=== PATIENT | male | born 1980 | race Caucasian/White ===

== ENCOUNTER 2018-02-21 17:21 | Inpatient (IN) | payer MEDICARE, MEDICAID ==
[~2018-02-21] VITALS: Ht 175.3 cm; Wt 112.0 kg
[~2018-02-21 17:21] MED LIST: NOCURR
[2018-02-21 22:05] VITALS: BP 123/68
[2018-02-21 22:25] VITALS: BP 123/68
[2018-02-21] MEDS ORDERED: ALBUTEROL SULFATE HFA 90 MCG/PUFF 8 GM INHALER IH PRN (22:45)
[2018-02-21] MEDS ORDERED: PNEUMOCOCCAL VACCINE POLYVALENT 0.5 ML VIAL [PPSV23] IM ONE (22:45)
[2018-02-22 05:30] VITALS: BP 120/86
[2018-02-22 07:26] LABS: BASOPHILS % (AUTO) 0.7 % (0.0-2.0); EOSINOPHILS % (AUTO) 4.2 % (1.0-6.0); HEMATOCRIT 37.8 % (41-53); HEMOGLOBIN 13.1 g/dL (13.5-17.5); LYMPHOCYTES # (AUTO) 3.2 K/uL (1.0-4.8); LYMPHOCYTES % (AUTO) 32.6 % (22.0-44.0); MEAN CORPUSCULAR HEMOGLOBIN 32.2 pg (26.0-34.0); MEAN CORPUSCULAR HGB CONC 34.5 G/dL (31.0-37.0); MEAN CORPUSCULAR VOLUME 93 fL (80-100); MONOCYTES # (AUTO) 1.1 K/uL (0.1-1.0); MONOCYTES % (AUTO) 11.7 % (2.0-9.0); NEUTROPHILS % (AUTO) 50.8 % (40.0-70.0); PLATELET COUNT (AUTO) 233 K/uL (150-450); RED BLOOD CELL COUNT(AUTO) 4.06 MIL/uL (4.50-5.90); RED CELL DISTRIBUTION WIDTH 13.8 % (11.5-14.5)
[2018-02-22 08:09] LABS: HEMOGLOBIN A1C 5.9 % (4.5-6.2)
[2018-02-22 08:12] LABS: ALANINE AMINOTRANSFERASE 41 U/L (12-78); ALBUMIN 3.5 g/dL (3.4-5.0); ALKALINE PHOSPHATASE 48 U/L (46-116); ANION GAP 3 mmol/L (8-16); ASPARTATE AMINOTRANSFERASE 44 U/L (15-37); BILIRUBIN,TOTAL 1.1 mg/dL (0.1-1.0); CALCIUM, TOTAL 8.3 mg/dL (8.8-10.5); CARBON DIOXIDE 33 mmol/L (22-29); CHLORIDE 104 mmol/L (98-107); CHOL/HDL RATIO 3.1 (4.2-7.3); CHOLESTEROL 132 mg/dL (131-200); CREATININE 0.96 mg/dL (0.60-1.30); FREE T4 (FREE THYROXINE) 1.05 ng/dL (0.76-1.46); GLOMERULAR FILTR. RATE CALC > 60 mL/min (>60); GLUCOSE,RANDOM 90 mg/dL (70-110); HDL CHOLESTEROL 43 mg/dL (40-60); LDL CHOL (CALC.) 78 mg/dL (0-130); SODIUM SERUM 140 mmol/L (136-145); THYROID STIMULATING HORMONE 1.66 uIU/mL (0.36-3.74); TOTAL PROTEIN, SERUM 6.2 g/dL (6.4-8.2); TRIGLYCERIDES 54 mg/dL (15-150); UREA NITROGEN, BLOOD 19 mg/dL (7-18)
[2018-02-22 08:44] VITALS: BP 110/76
[2018-02-22] MEDS ORDERED: PETROLATUM,WHITE 71 GM JELLY TP PRN (08:45)
[2018-02-22] MEDS ORDERED: ALBUTEROL SULFATE HFA 90 MCG/PUFF 8 GM INHALER IH PRN (08:45)
[2018-02-22] MEDS ORDERED: CloNIDine HCL 0.1 MG TABLET PO PRN (08:45)
[2018-02-22] MEDS ORDERED: MAGNESIUM HYDROXIDE SUSPENSION 30 ML UDCUP PO PRN (08:45)
[2018-02-22] MEDS ORDERED: ACETAMINOPHEN 325 MG TABLET PO PRN (08:45)
[2018-02-22] MEDS ORDERED: BACITRACIN 28.4 GM OINTMENT TP PRN (08:45)
[2018-02-22] MEDS ORDERED: BENZOCAINE/MENTHOL LOZENGE MM PRN (08:45)
[2018-02-22] MEDS ORDERED: ONDANSETRON HCL 4 MG TABLET PO PRN (08:45)
[2018-02-22] MEDS ORDERED: LOPERAMIDE HCL 2 MG CAPSULE PO PRN (08:45)
[2018-02-22] MEDS ORDERED: MAG HYDROX/AL HYDROX/SIMETH ES 30 ML SUSPENSION UDCUP PO PRN (08:45)
[2018-02-22] MEDS: NICOTINE 21 MG/24 HOUR PATCH TD SCH (09:04)
[2018-02-22] MEDS: LORazepam 2 MG TABLET PO PRN ×2 (12:48→20:03)
[2018-02-22 16:12] VITALS: BP 117/66
[2018-02-23 01:13] VITALS: BP 120/60
[2018-02-23 06:47] VITALS: BP 119/66
[2018-02-23] MEDS: IBUPROFEN 600 MG TABLET PO PRN (06:48)
[2018-02-23 08:00] VITALS: BP 118/66
[2018-02-23] MEDS: OLANZapine 5 MG TABLET PO SCH (08:49)
[2018-02-23] MEDS: FLUoxetine HCL 20 MG CAPSULE PO SCH (08:49)
[2018-02-23] MEDS: NICOTINE 21 MG/24 HOUR PATCH TD SCH (08:50)
[2018-02-23 16:12] VITALS: BP 118/67
[2018-02-23] MEDS: LORazepam 2 MG TABLET PO PRN (17:41)
[2018-02-24 04:42] VITALS: BP 125/80
[2018-02-24 08:51] VITALS: BP 112/66
[2018-02-24] MEDS: FLUoxetine HCL 20 MG CAPSULE PO SCH (09:41)
[2018-02-24] MEDS: OLANZapine 5 MG TABLET PO SCH (09:41)
[2018-02-24] MEDS: NICOTINE 21 MG/24 HOUR PATCH TD SCH (09:42)
[2018-02-24 16:40] VITALS: BP 120/84
[2018-02-24] MEDS: LORazepam 2 MG TABLET PO PRN (18:41)
[2018-02-24] MEDS: HALOPERIDOL 5 MG TABLET PO PRN (18:41)
[2018-02-25 03:51] VITALS: BP 113/78
[2018-02-25] MEDS: FLUoxetine HCL 20 MG CAPSULE PO SCH (09:09)
[2018-02-25] MEDS: OLANZapine 5 MG TABLET PO SCH (09:09)
[2018-02-25] MEDS: NICOTINE 21 MG/24 HOUR PATCH TD SCH (09:09)
[2018-02-25] MEDS: LORazepam 2 MG TABLET PO PRN (09:09)
[2018-02-25 09:11] VITALS: BP 118/78
[2018-02-25 16:17] VITALS: BP 117/67
[2018-02-25] MEDS: ZOLPIDEM TARTRATE 10 MG TABLET PO PRN (21:24)
[2018-02-26 03:22] VITALS: BP 110/68
[2018-02-26 08:37] VITALS: BP 121/74
[2018-02-26] MEDS ORDERED: OLANZapine 10 MG TABLET PO SCH (09:00)
[2018-02-26] MEDS: NICOTINE 21 MG/24 HOUR PATCH TD SCH (09:07)
[2018-02-26] MEDS: FLUoxetine HCL 20 MG CAPSULE PO SCH (09:07)
[2018-02-26] MEDS: IBUPROFEN 600 MG TABLET PO PRN (12:41)
[2018-02-26 16:08] VITALS: BP 112/66
[2018-02-26] MEDS: HALOPERIDOL 5 MG TABLET PO PRN (17:46)
[2018-02-27 01:22] VITALS: BP 116/71
[2018-02-27] MEDS: FLUoxetine HCL 20 MG CAPSULE PO SCH (08:45)
[2018-02-27] MEDS: OLANZapine 7.5 MG TABLET PO SCH (08:46)
[2018-02-27 08:47] VITALS: BP 122/68
[2018-02-27] MEDS: NICOTINE 21 MG/24 HOUR PATCH TD SCH (08:47)
[2018-02-27] MEDS: LORazepam 2 MG TABLET PO PRN ×2 (09:23→17:00)
[2018-02-27 16:09] VITALS: BP 122/74
[2018-02-28 00:59] VITALS: BP 108/68
[2018-02-28 08:00] VITALS: BP 125/66
[2018-02-28] MEDS: OLANZapine 7.5 MG TABLET PO SCH (08:48)
[2018-02-28] MEDS: NICOTINE 21 MG/24 HOUR PATCH TD SCH (08:48)
[2018-02-28] MEDS: FLUoxetine HCL 20 MG CAPSULE PO SCH (08:48)
[2018-02-28] MEDS: LORazepam 2 MG TABLET PO PRN ×2 (08:49→16:32)
[2018-02-28 09:21] VITALS: BP 121/78
[2018-02-28] MEDS: IBUPROFEN 600 MG TABLET PO PRN ×2 (09:43→20:31)
[2018-02-28 16:10] VITALS: BP 114/65
[2018-02-28] MEDS: HALOPERIDOL 5 MG TABLET PO PRN (16:33)
[2018-03-01 00:15] VITALS: BP 126/82
[2018-03-01 00:20] VITALS: BP 120/70
[2018-03-01 08:20] VITALS: BP 115/74
[2018-03-01] MEDS: OLANZapine 7.5 MG TABLET PO SCH (08:25)
[2018-03-01] MEDS: FLUoxetine HCL 20 MG CAPSULE PO SCH (08:25)
[2018-03-01] MEDS: NICOTINE 21 MG/24 HOUR PATCH TD SCH (08:26)
[2018-03-01] MEDS: LORazepam 2 MG TABLET PO PRN ×3 (08:26→18:44)
[2018-03-01] MEDS: HALOPERIDOL 5 MG TABLET PO PRN (15:56)
[2018-03-01 16:43] VITALS: BP 127/75
[2018-03-02 04:45] VITALS: BP 118/84
[2018-03-02] MEDS: NICOTINE 21 MG/24 HOUR PATCH TD SCH (08:00)
[2018-03-02] MEDS ORDERED: OLAN7.5T2 PO (08:00)
[2018-03-02] MEDS ORDERED: FLUO40CA7 PO (08:00)
[2018-03-02] MEDS: FLUoxetine HCL 20 MG CAPSULE PO SCH (08:00)
[2018-03-02] MEDS: OLANZapine 7.5 MG TABLET PO SCH (08:00)
[2018-03-02 16:00] VITALS: BP 120/80
[2018-03-02] MEDS: LORazepam 2 MG TABLET PO PRN (16:00)
[2018-03-02] MEDS: IBUPROFEN 600 MG TABLET PO PRN (16:00)
[2018-03-02 17:00] VITALS: BP 115/67
[2018-03-02] MEDS: ZOLPIDEM TARTRATE 10 MG TABLET PO PRN (20:16)
[2018-03-03 04:18] VITALS: BP 109/68
[2018-03-03 08:18] VITALS: BP 125/62
[2018-03-03] MEDS: NICOTINE 21 MG/24 HOUR PATCH TD SCH (08:25)
[2018-03-03] MEDS: OLANZapine 7.5 MG TABLET PO SCH (08:25)
[2018-03-03] MEDS: FLUoxetine HCL 20 MG CAPSULE PO SCH (08:25)
[2018-03-03 16:00] VITALS: BP 127/62
[2018-03-03] MEDS: LORazepam 2 MG TABLET PO PRN (18:11)
[2018-03-03] MEDS: HALOPERIDOL 5 MG TABLET PO PRN (18:11)
[2018-03-03] MEDS: ZOLPIDEM TARTRATE 10 MG TABLET PO PRN (20:16)
[2018-03-04 00:45] VITALS: BP 110/60
[2018-03-04 08:21] VITALS: BP 137/64
[2018-03-04] MEDS: NICOTINE 21 MG/24 HOUR PATCH TD SCH (09:10)
[2018-03-04] MEDS: OLANZapine 7.5 MG TABLET PO SCH (09:10)
[2018-03-04] MEDS: FLUoxetine HCL 20 MG CAPSULE PO SCH (09:10)
== END 2018-03-04 10:50 | disposition home or self-care (01) | DRG 885 ==
LOC: B2S 21:00
PROVIDERS: ADMIT Psychiatry & Neurology Psychiatry; ATTEND Psychiatry & Neurology Psychiatry
DX: F20.0 Paranoid schizophrenia (principal); F15.20 Other stimulant dependence, uncomplicated; E66.9 Obesity, unspecified; F12.90 Cannabis use, unspecified, uncomplicated; F17.200 Nicotine dependence, unspecified, uncomplicated; F32.9 Major depressive disorder, single episode, unspecified; G47.00 Insomnia, unspecified; J45.909 Unspecified asthma, uncomplicated; Z59.0 Homelessness; Z79.899 Other long term (current) drug therapy; Z28.21 Immunization not carried out because of patient refusal; Z91.5 Personal history of self-harm; Z81.8 Family history of other mental and behavioral disorders; Z68.36 Body mass index [BMI] 36.0-36.9, adult; Z71.6 Tobacco abuse counseling; Z71.51 Drug abuse counseling and surveillance of drug abuser
CPT/HCPCS: 80074; 82306; 83036; 84439; 84443; 87081

== ENCOUNTER 2018-04-04 10:49 | Inpatient (IN) | payer MEDICARE, MEDICAID ==
[~2018-04-04] VITALS: Ht 175.3 cm; Wt 104.8 kg
[~2018-04-04 10:49] MED LIST changes: +FLUO40CA7 PO; -NOCURR; +OLAN7.5T2 PO
[2018-04-04 11:09] LABS: BASOPHILS % (AUTO) 1.1 % (0.0-2.0); EOSINOPHILS % (AUTO) 1.3 % (1.0-6.0); HEMATOCRIT 42.8 % (41-53); HEMOGLOBIN 14.4 g/dL (13.5-17.5); LYMPHOCYTES # (AUTO) 2.8 K/uL (1.0-4.8); MEAN CORPUSCULAR HEMOGLOBIN 31.2 pg (26.0-34.0); MEAN CORPUSCULAR HGB CONC 33.6 G/dL (31.0-37.0); MEAN CORPUSCULAR VOLUME 93 fL (80-100); MONOCYTES # (AUTO) 0.5 K/uL (0.1-1.0); MONOCYTES % (AUTO) 6.7 % (2.0-9.0); NEUTROPHILS # (AUTO) 4.1 K/uL (1.8-7.7); NEUTROPHILS % (AUTO) 53.9 % (40.0-70.0); PLATELET COUNT (AUTO) 284 K/uL (150-450); RED BLOOD CELL COUNT(AUTO) 4.61 MIL/uL (4.50-5.90); RED CELL DISTRIBUTION WIDTH 13.6 % (11.5-14.5)
[2018-04-04 11:16] LABS: ANION GAP 7 mmol/L (8-16); CARBON DIOXIDE 27 mmol/L (22-29); CHLORIDE 104 mmol/L (98-107); CREATININE 1.08 mg/dL (0.60-1.30); GLOMERULAR FILTR. RATE CALC > 60 mL/min (>60); GLUCOSE,RANDOM 95 mg/dL (70-110); POTASSIUM 3.5 mmol/L (3.5-5.1); SODIUM SERUM 138 mmol/L (136-145); UREA NITROGEN, BLOOD 13 mg/dL (7-18)
[2018-04-04 11:22] LABS: ALANINE AMINOTRANSFERASE 25 U/L (12-78); ALBUMIN 4.2 g/dL (3.4-5.0); ALKALINE PHOSPHATASE 54 U/L (46-116); ASPARTATE AMINOTRANSFERASE 19 U/L (15-37); BILIRUBIN,TOTAL 1.4 mg/dL (0.1-1.0); TOTAL PROTEIN, SERUM 7.7 g/dL (6.4-8.2)
[2018-04-04] MEDS ORDERED: LORazepam 2 MG TABLET PO ONE (12:15)
[2018-04-04] MEDS ORDERED: HALOPERIDOL 5 MG TABLET PO ONE (12:15)
[2018-04-04] MEDS ORDERED: DiphenhydrAMINE HCL 25 MG CAPSULE PO ONE (12:15)
[2018-04-04 16:04] VITALS: BP 132/93
[2018-04-04] MEDS: HALOPERIDOL 5 MG TABLET PO PRN ×2 (17:08→21:08)
[2018-04-04] MEDS: LORazepam 2 MG TABLET PO PRN ×2 (17:08→21:08)
[2018-04-04] MEDS: ZOLPIDEM TARTRATE 10 MG TABLET PO PRN (21:09)
[2018-04-04] MEDS ORDERED: MAG HYDROX/AL HYDROX/SIMETH ES 30 ML SUSPENSION UDCUP PO PRN (22:30)
[2018-04-04] MEDS ORDERED: IBUPROFEN 400 MG TABLET PO PRN (22:30)
[2018-04-04] MEDS ORDERED: MAGNESIUM HYDROXIDE SUSPENSION 30 ML UDCUP PO PRN (22:30)
[2018-04-04] MEDS ORDERED: ALBUTEROL SULFATE HFA 90 MCG/PUFF 8 GM INHALER IH PRN (22:30)
[2018-04-04] MEDS ORDERED: PETROLATUM,WHITE 71 GM JELLY TP PRN (22:30)
[2018-04-04] MEDS ORDERED: DOCUSATE SODIUM 100 MG CAPSULE PO PRN (22:30)
[2018-04-04] MEDS ORDERED: ACETAMINOPHEN 325 MG TABLET PO PRN (22:30)
[2018-04-04] MEDS ORDERED: ONDANSETRON HCL 4 MG TABLET PO PRN (22:30)
[2018-04-05 03:30] VITALS: BP 116/69
[2018-04-05 08:13] VITALS: BP 122/68
[2018-04-05 08:24] LABS: HEMOGLOBIN A1C 5.7 % (4.5-6.2)
[2018-04-05 08:42] LABS: CHOL/HDL RATIO 3.2 (4.2-7.3); THYROID STIMULATING HORMONE 1.93 uIU/mL (0.36-3.74)
[2018-04-05] MEDS: NICOTINE 14 MG/24 HOUR PATCH TD SCH (08:54)
[2018-04-05] MEDS: FLUoxetine HCL 20 MG CAPSULE PO SCH (08:54)
[2018-04-05] MEDS: LORazepam 2 MG TABLET PO PRN ×2 (08:54→16:46)
[2018-04-05] MEDS: OLANZapine 7.5 MG TABLET PO SCH (08:54)
[2018-04-05] MEDS ORDERED: NICOTINE 7 MG/24 HOUR PATCH TD SCH (09:00)
[2018-04-05 16:31] VITALS: BP 110/65
[2018-04-05] MEDS: HALOPERIDOL 5 MG TABLET PO PRN (16:46)
[2018-04-06 03:56] VITALS: BP 126/73
[2018-04-06] MEDS: HALOPERIDOL 5 MG TABLET PO PRN ×2 (08:20→17:21)
[2018-04-06] MEDS: LORazepam 2 MG TABLET PO PRN ×2 (08:20→17:21)
[2018-04-06] MEDS: NICOTINE 14 MG/24 HOUR PATCH TD SCH (08:20)
[2018-04-06] MEDS: OLANZapine 7.5 MG TABLET PO SCH (08:20)
[2018-04-06] MEDS: FLUoxetine HCL 20 MG CAPSULE PO SCH (08:20)
[2018-04-06 11:17] VITALS: BP 116/74
[2018-04-06 16:00] VITALS: BP 112/68
[2018-04-06] MEDS: ZOLPIDEM TARTRATE 10 MG TABLET PO PRN (21:08)
[2018-04-07 07:04] VITALS: BP 121/74
[2018-04-07 08:00] VITALS: BP 116/65
[2018-04-07] MEDS: NICOTINE 14 MG/24 HOUR PATCH TD SCH (09:41)
[2018-04-07] MEDS: OLANZapine 7.5 MG TABLET PO SCH (09:41)
[2018-04-07] MEDS: FLUoxetine HCL 20 MG CAPSULE PO SCH (09:41)
[2018-04-07 16:00] VITALS: BP 118/71
[2018-04-07] MEDS: LORazepam 2 MG TABLET PO PRN (20:50)
[2018-04-07] MEDS: ZOLPIDEM TARTRATE 10 MG TABLET PO PRN (20:50)
[2018-04-08 06:19] VITALS: BP 124/67
[2018-04-08 08:14] VITALS: BP 136/68
[2018-04-08] MEDS: NICOTINE 14 MG/24 HOUR PATCH TD SCH (09:07)
[2018-04-08] MEDS: OLANZapine 7.5 MG TABLET PO SCH (09:07)
[2018-04-08] MEDS: FLUoxetine HCL 20 MG CAPSULE PO SCH (09:07)
[2018-04-08 16:00] VITALS: BP 127/65
[2018-04-08] MEDS: LORazepam 2 MG TABLET PO PRN (16:47)
[2018-04-08] MEDS: HALOPERIDOL 5 MG TABLET PO PRN (16:47)
[2018-04-09 06:16] VITALS: BP 115/75
[2018-04-09 08:11] VITALS: BP 124/73
[2018-04-09] MEDS: FLUoxetine HCL 20 MG CAPSULE PO SCH (10:20)
[2018-04-09] MEDS: OLANZapine 7.5 MG TABLET PO SCH (10:20)
[2018-04-09] MEDS: NICOTINE 14 MG/24 HOUR PATCH TD SCH (10:20)
[2018-04-09] MEDS: LORazepam 2 MG TABLET PO PRN ×3 (12:01→20:07)
[2018-04-09 16:00] VITALS: BP 117/71
[2018-04-09] MEDS: HALOPERIDOL 5 MG TABLET PO PRN (16:01)
[2018-04-09] MEDS: ZOLPIDEM TARTRATE 10 MG TABLET PO PRN (20:07)
[2018-04-10 05:57] VITALS: BP 122/72
[2018-04-10 08:10] VITALS: BP 135/72
[2018-04-10] MEDS: NICOTINE 14 MG/24 HOUR PATCH TD SCH (08:26)
[2018-04-10] MEDS: FLUoxetine HCL 20 MG CAPSULE PO SCH (08:26)
[2018-04-10] MEDS: OLANZapine 7.5 MG TABLET PO SCH (08:26)
[2018-04-10] MEDS: HALOPERIDOL 5 MG TABLET PO PRN ×2 (13:46→17:48)
[2018-04-10] MEDS: LORazepam 2 MG TABLET PO PRN ×2 (13:46→17:48)
[2018-04-10 16:00] VITALS: BP 117/68
[2018-04-10] MEDS: NICOTINE 21 MG/24 HOUR PATCH TD SCH (16:51)
[2018-04-10] MEDS: ZOLPIDEM TARTRATE 10 MG TABLET PO PRN (20:48)
[2018-04-11 06:12] VITALS: BP 119/71
[2018-04-11 08:14] VITALS: BP 122/81
[2018-04-11] MEDS: NICOTINE 21 MG/24 HOUR PATCH TD SCH (08:17)
[2018-04-11] MEDS: OLANZapine 7.5 MG TABLET PO SCH (08:17)
[2018-04-11] MEDS: FLUoxetine HCL 20 MG CAPSULE PO SCH (08:17)
== END 2018-04-11 09:10 | disposition home or self-care (01) | DRG 885 ==
LOC: EMS 10:52 → B3A 13:51
PROVIDERS: ADMIT Psychiatry & Neurology Psychiatry; ATTEND Psychiatry & Neurology Psychiatry
DX: F20.0 Paranoid schizophrenia (principal); E66.9 Obesity, unspecified; F15.10 Other stimulant abuse, uncomplicated; G47.00 Insomnia, unspecified; M54.9 Dorsalgia, unspecified; F12.90 Cannabis use, unspecified, uncomplicated; F17.210 Nicotine dependence, cigarettes, uncomplicated; J45.909 Unspecified asthma, uncomplicated; Z59.0 Homelessness; Z91.5 Personal history of self-harm; Z68.34 Body mass index [BMI] 34.0-34.9, adult; Z79.899 Other long term (current) drug therapy; Z71.6 Tobacco abuse counseling; Z71.51 Drug abuse counseling and surveillance of drug abuser
CPT/HCPCS: 83036; 84443; 87081; 99285; G0480

== ENCOUNTER 2019-01-08 15:26 | Inpatient (IN) | payer MEDICARE, MEDICAID ==
[~2019-01-08] VITALS: Ht 167.6 cm; Wt 91.6 kg
[2019-01-08] MEDS ORDERED: NICOTINE 14 MG/24 HOUR PATCH TD PRN (19:45)
[2019-01-08] MEDS ORDERED: LOPERAMIDE HCL 2 MG CAPSULE PO PRN (19:45)
[2019-01-08] MEDS ORDERED: ONDANSETRON HCL 4 MG TABLET PO PRN (19:45)
[2019-01-08] MEDS ORDERED: MAG HYDROX/AL HYDROX/SIMETH ES 30 ML SUSPENSION UDCUP PO PRN (19:45)
[2019-01-08] MEDS ORDERED: ALBUTEROL SULFATE HFA 90 MCG/PUFF 8 GM INHALER IH PRN (19:45)
[2019-01-08] MEDS ORDERED: MAGNESIUM HYDROXIDE SUSPENSION 30 ML UDCUP PO PRN (19:45)
[2019-01-08] MEDS ORDERED: ACETAMINOPHEN 325 MG TABLET PO PRN (19:45)
[2019-01-08] MEDS ORDERED: DOCUSATE SODIUM 100 MG CAPSULE PO PRN (19:45)
[2019-01-08] MEDS ORDERED: GuaiFENesin/D-METHORPHAN [SUGAR-FREE] 200-20MG/10 ML SYRUP UDCUP PO PRN (19:45)
[2019-01-08] MEDS ORDERED: CloNIDine HCL 0.1 MG TABLET PO PRN (19:45)
[2019-01-08] MEDS ORDERED: PETROLATUM,WHITE 28 GM JELLY TP PRN (19:45)
[2019-01-08] MEDS: LORazepam 2 MG TABLET PO PRN (20:35)
[2019-01-08] MEDS: HALOPERIDOL 5 MG TABLET PO PRN (20:35)
[2019-01-08 20:37] VITALS: BP 121/59
[2019-01-09 00:06] VITALS: BP 118/72
[2019-01-09 08:11] VITALS: BP 12/67
[2019-01-09] MEDS: OLANZapine 10 MG TABLET PO SCH ×2 (20:06→20:45)
[2019-01-09] MEDS ORDERED: DiphenhydrAMINE HCL 50 MG/ML VIAL IM ONE (21:15)
[2019-01-09] MEDS ORDERED: HALOPERIDOL LACTATE 5 MG/ML VIAL IM ONE (21:15)
[2019-01-09] MEDS ORDERED: LORazepam 2 MG/ML VIAL IM ONE (21:15)
[2019-01-09] MEDS ORDERED: DiphenhydrAMINE HCL 50 MG/ML VIAL ONE (21:18)
[2019-01-09] MEDS ORDERED: LORazepam 2 MG/ML VIAL ONE (21:18)
[2019-01-09] MEDS ORDERED: HALOPERIDOL LACTATE 5 MG/ML VIAL ONE (21:19)
[2019-01-10 06:54] VITALS: BP 121/74
[2019-01-10] MEDS: FLUoxetine HCL 20 MG CAPSULE PO SCH (08:21)
[2019-01-10] MEDS: LORazepam 2 MG TABLET PO PRN ×2 (09:02→16:48)
[2019-01-10 09:58] VITALS: BP 119/69
[2019-01-10 16:09] VITALS: BP 95/60
[2019-01-10] MEDS: HALOPERIDOL 5 MG TABLET PO PRN (16:48)
[2019-01-10] MEDS: OLANZapine 10 MG TABLET PO SCH (20:21)
[2019-01-10] MEDS: ZOLPIDEM TARTRATE 10 MG TABLET PO PRN (21:07)
[2019-01-11 01:11] VITALS: BP 124/76
[2019-01-11] MEDS: FLUoxetine HCL 20 MG CAPSULE PO SCH (08:19)
[2019-01-11] MEDS: LORazepam 2 MG TABLET PO PRN ×2 (08:19→12:34)
[2019-01-11 08:38] VITALS: BP 119/74
[2019-01-11] MEDS: HALOPERIDOL 5 MG TABLET PO PRN (12:34)
[2019-01-11 16:20] VITALS: BP 102/62
[2019-01-11] MEDS: OLANZapine 10 MG TABLET PO SCH (20:47)
[2019-01-12 00:25] VITALS: BP 97/62
[2019-01-12 06:55] VITALS: BP 104/60
[2019-01-12] MEDS: HALOPERIDOL 5 MG TABLET PO PRN ×2 (07:30→13:01)
[2019-01-12] MEDS: LORazepam 2 MG TABLET PO PRN ×2 (07:30→13:01)
[2019-01-12] MEDS ORDERED: DiphenhydrAMINE HCL 50 MG/ML VIAL ONE (08:08)
[2019-01-12] MEDS ORDERED: LORazepam 2 MG/ML VIAL ONE (08:08)
[2019-01-12] MEDS ORDERED: LORazepam 2 MG/ML VIAL IM ONE (08:15)
[2019-01-12] MEDS ORDERED: DiphenhydrAMINE HCL 50 MG/ML VIAL IM ONE (08:15)
[2019-01-12 08:25] VITALS: BP 115/68
[2019-01-12] MEDS: FLUoxetine HCL 20 MG CAPSULE PO SCH (08:49)
[2019-01-12 08:50] LABS: BASOPHILS % (AUTO) 0.4 % (0.0-2.0); EOSINOPHILS % (AUTO) 0.1 % (1.0-6.0); HEMATOCRIT 41.3 % (41-53); HEMOGLOBIN 13.8 g/dL (13.5-17.5); LYMPHOCYTES # (AUTO) 2.6 K/uL (1.0-4.8); MEAN CORPUSCULAR HGB CONC 33.4 G/dL (31.0-37.0); MEAN CORPUSCULAR VOLUME 93 fL (80-100); MONOCYTES # (AUTO) 0.5 K/uL (0.1-1.0); MONOCYTES % (AUTO) 8.5 % (2.0-9.0); NEUTROPHILS # (AUTO) 2.5 K/uL (1.8-7.7); PLATELET COUNT (AUTO) 266 K/uL (150-450); RED BLOOD CELL COUNT(AUTO) 4.45 MIL/uL (4.50-5.90)
[2019-01-12 09:12] LABS: HEMOGLOBIN A1C 5.5 % (4.5-6.2)
[2019-01-12 09:44] LABS: ALANINE AMINOTRANSFERASE 21 U/L (12-78); ALBUMIN 3.6 g/dL (3.4-5.0); ALKALINE PHOSPHATASE 44 U/L (46-116); ANION GAP 8 mmol/L (8-16); ASPARTATE AMINOTRANSFERASE 13 U/L (15-37); BILIRUBIN,TOTAL 0.7 mg/dL (0.1-1.0); CALCIUM, TOTAL 9.4 mg/dL (8.8-10.5); CARBON DIOXIDE 30 mmol/L (22-29); CHLORIDE 104 mmol/L (98-107); CHOL/HDL RATIO 2.9 (4.2-7.3); CHOLESTEROL 138 mg/dL (131-200); CREATININE 0.87 mg/dL (0.60-1.30); FREE T4 (FREE THYROXINE) 0.97 ng/dL (0.76-1.46); GLOMERULAR FILTR. RATE CALC > 60 mL/min (>60); GLUCOSE,RANDOM 81 mg/dL (70-110); HDL CHOLESTEROL 48 mg/dL (40-60); LDL CHOL (CALC.) 77 mg/dL (0-130); POTASSIUM 4.5 mmol/L (3.5-5.1); SODIUM SERUM 142 mmol/L (136-145); THYROID STIMULATING HORMONE 1.56 uIU/mL (0.36-3.74); TOTAL PROTEIN, SERUM 6.3 g/dL (6.4-8.2); TRIGLYCERIDES 64 mg/dL (15-150); UREA NITROGEN, BLOOD 13 mg/dL (7-18)
[2019-01-12 16:29] VITALS: BP 118/70
[2019-01-12] MEDS: OLANZapine 10 MG TABLET PO SCH (20:27)
[2019-01-13 00:28] VITALS: BP 117/61
[2019-01-13] MEDS: FLUoxetine HCL 20 MG CAPSULE PO SCH (08:16)
[2019-01-13] MEDS: LORazepam 2 MG TABLET PO PRN ×2 (08:20→12:57)
[2019-01-13 08:46] VITALS: BP 121/80
[2019-01-13] MEDS: HALOPERIDOL 5 MG TABLET PO PRN (09:56)
[2019-01-13] MEDS: IBUPROFEN 400 MG TABLET PO PRN (09:58)
[2019-01-13 16:41] VITALS: BP 111/76
[2019-01-13] MEDS: ZOLPIDEM TARTRATE 10 MG TABLET PO PRN (21:05)
[2019-01-13] MEDS: OLANZapine 7.5 MG TABLET PO SCH (21:06)
[2019-01-14 00:09] VITALS: BP 122/83
[2019-01-14] MEDS: HALOPERIDOL 5 MG TABLET PO PRN ×3 (06:52→15:55)
[2019-01-14] MEDS: FLUoxetine HCL 20 MG CAPSULE PO SCH ×3 (08:01→09:53)
[2019-01-14 08:08] VITALS: BP 115/76
[2019-01-14] MEDS: LORazepam 2 MG TABLET PO PRN ×2 (09:52→15:55)
[2019-01-14 16:47] VITALS: BP 123/66
[2019-01-14] MEDS: OLANZapine 7.5 MG TABLET PO SCH (20:35)
[2019-01-14] MEDS: ZOLPIDEM TARTRATE 10 MG TABLET PO PRN (20:55)
[2019-01-15 05:12] VITALS: BP 120/83
[2019-01-15] MEDS: HALOPERIDOL 5 MG TABLET PO PRN ×2 (06:48→10:48)
[2019-01-15] MEDS: LORazepam 2 MG TABLET PO PRN ×3 (06:48→18:17)
[2019-01-15] MEDS: FLUoxetine HCL 20 MG CAPSULE PO SCH (08:44)
[2019-01-15 09:00] VITALS: BP 124/66
[2019-01-15 16:29] VITALS: BP 116/61
[2019-01-15] MEDS: OLANZapine 7.5 MG TABLET PO SCH (20:38)
[2019-01-16 07:03] VITALS: BP 121/76
[2019-01-16] MEDS: LORazepam 2 MG TABLET PO PRN ×3 (07:12→16:17)
[2019-01-16] MEDS: HALOPERIDOL 5 MG TABLET PO PRN ×3 (07:12→16:17)
[2019-01-16] MEDS: FLUoxetine HCL 20 MG CAPSULE PO SCH (08:35)
[2019-01-16 08:40] VITALS: BP 107/70
[2019-01-16] MEDS: IBUPROFEN 400 MG TABLET PO PRN (11:30)
[2019-01-16 16:43] VITALS: BP 124/74
[2019-01-16] MEDS: OLANZapine 7.5 MG TABLET PO SCH (20:49)
[2019-01-17 06:00] VITALS: BP 124/82
[2019-01-17] MEDS: HALOPERIDOL 5 MG TABLET PO PRN ×3 (06:01→17:21)
[2019-01-17] MEDS: LORazepam 2 MG TABLET PO PRN ×3 (06:01→17:21)
[2019-01-17] MEDS: FLUoxetine HCL 20 MG CAPSULE PO SCH (08:23)
[2019-01-17 08:31] VITALS: BP 115/76
[2019-01-17] MEDS ORDERED: DiphenhydrAMINE HCL 25 MG CAPSULE PO ONE (12:00)
[2019-01-17] MEDS ORDERED: LORazepam 2 MG TABLET PO ONE (12:00)
[2019-01-17] MEDS ORDERED: HALOPERIDOL 5 MG TABLET PO ONE (12:00)
[2019-01-17 16:35] VITALS: BP 124/76
[2019-01-18 03:59] VITALS: BP 119/76
[2019-01-18] MEDS: FLUoxetine HCL 20 MG CAPSULE PO SCH (08:01)
[2019-01-18] MEDS: OLANZapine 10 MG TABLET PO SCH (08:01)
[2019-01-18] MEDS: LORazepam 2 MG TABLET PO PRN ×2 (08:08→12:33)
[2019-01-18] MEDS: HALOPERIDOL 5 MG TABLET PO PRN ×2 (08:08→12:33)
[2019-01-18 08:55] VITALS: BP 99/65
[2019-01-18] MEDS ORDERED: DiphenhydrAMINE HCL 50 MG/ML VIAL ONE (12:37)
[2019-01-18] MEDS ORDERED: LORazepam 2 MG/ML VIAL ONE (12:37)
[2019-01-18] MEDS ORDERED: HALOPERIDOL LACTATE 5 MG/ML VIAL ONE (12:37)
[2019-01-18] MEDS ORDERED: DiphenhydrAMINE HCL 50 MG/ML VIAL IM ONE (12:45)
[2019-01-18] MEDS ORDERED: HALOPERIDOL LACTATE 5 MG/ML VIAL IM ONE (12:45)
[2019-01-18] MEDS ORDERED: LORazepam 2 MG/ML VIAL IM ONE (12:45)
[2019-01-18 16:13] VITALS: BP 102/57
[2019-01-18] MEDS: DIVALPROEX SODIUM 500 MG DR TABLET PO SCH (21:37)
[2019-01-19 04:50] VITALS: BP 128/72
[2019-01-19] MEDS: HALOPERIDOL 5 MG TABLET PO PRN (04:57)
[2019-01-19] MEDS: LORazepam 2 MG TABLET PO PRN ×2 (04:57→16:40)
[2019-01-19 08:16] VITALS: BP 117/70
[2019-01-19] MEDS: FLUoxetine HCL 20 MG CAPSULE PO SCH (08:17)
[2019-01-19] MEDS: DIVALPROEX SODIUM 500 MG DR TABLET PO SCH ×2 (08:17→20:47)
[2019-01-19] MEDS: OLANZapine 10 MG TABLET PO SCH (08:17)
[2019-01-19 16:40] VITALS: BP 124/69
[2019-01-19 17:12] VITALS: BP 115/63
[2019-01-20 05:17] VITALS: BP 112/66
[2019-01-20] MEDS: OLANZapine 10 MG TABLET PO SCH (08:24)
[2019-01-20] MEDS: DIVALPROEX SODIUM 500 MG DR TABLET PO SCH (08:24)
[2019-01-20] MEDS: FLUoxetine HCL 20 MG CAPSULE PO SCH (08:24)
[2019-01-20 08:35] VITALS: BP 124/61
[2019-01-20] MEDS ORDERED: FLUO-191 PO (09:47)
[2019-01-20] MEDS ORDERED: DIVA-78 PO (09:47)
[2019-01-20] MEDS ORDERED: OLAN10TA20 PO (09:47)
== END 2019-01-20 12:40 | disposition home or self-care (01) | DRG 885 ==
LOC: B2S 19:16
DX: F20.0 Paranoid schizophrenia (principal); F15.20 Other stimulant dependence, uncomplicated; J45.909 Unspecified asthma, uncomplicated; Z59.0 Homelessness; Z91.5 Personal history of self-harm; Z87.820 Personal history of traumatic brain injury; Z79.899 Other long term (current) drug therapy; K59.00 Constipation, unspecified; F17.200 Nicotine dependence, unspecified, uncomplicated; E66.9 Obesity, unspecified; Z91.19 Patient's noncompliance with other medical treatment and regimen; Z68.32 Body mass index [BMI] 32.0-32.9, adult; F41.9 Anxiety disorder, unspecified; F32.9 Major depressive disorder, single episode, unspecified; Z71.51 Drug abuse counseling and surveillance of drug abuser
CPT/HCPCS: 83036; 84439; 84443; J1200; J1630; J2060; J3230; J3535

== ENCOUNTER 2020-05-14 10:22 | Emergency (ER) | payer MEDICAID, MEDICARE ==
[~2020-05-14] VITALS: Ht 175.3 cm; Wt 100.0 kg
[~2020-05-14 10:22] MED LIST changes: +DIVA-112 PO; +FLUO-191 PO; -FLUO40CA7 PO; +OLAN10TA20 PO; -OLAN7.5T2 PO
[2020-05-14 14:16] LABS: BASOPHILS % (AUTO) 0.7 % (0.0-2.0); EOSINOPHILS % (AUTO) 0.3 % (1.0-6.0); HEMATOCRIT 41.9 % (41-53); HEMOGLOBIN 14.2 g/dL (13.5-17.5); LYMPHOCYTES # (AUTO) 2.5 K/uL (1.0-4.8); LYMPHOCYTES % (AUTO) 34.6 % (22.0-44.0); MEAN CORPUSCULAR HEMOGLOBIN 31.3 pg (26.0-34.0); MEAN CORPUSCULAR HGB CONC 33.9 G/dL (31.0-37.0); MEAN CORPUSCULAR VOLUME 92 fL (80-100); MONOCYTES # (AUTO) 0.6 K/uL (0.1-1.0); MONOCYTES % (AUTO) 7.5 % (2.0-9.0); NEUTROPHILS # (AUTO) 4.2 K/uL (1.8-7.7); NEUTROPHILS % (AUTO) 56.9 % (40.0-70.0); PLATELET COUNT (AUTO) 270 K/uL (150-450); RED BLOOD CELL COUNT(AUTO) 4.55 MIL/uL (4.50-5.90); RED CELL DISTRIBUTION WIDTH 13.8 % (11.5-14.5)
[2020-05-14 14:26] LABS: ANION GAP 11 mmol/L (8-16); CALCIUM, TOTAL 9.7 mg/dL (8.8-10.5); CARBON DIOXIDE 26 mmol/L (22-29); CHLORIDE 102 mmol/L (98-107); CREATININE 0.98 mg/dL (0.60-1.30); GLOMERULAR FILTR. RATE CALC > 60 mL/min (>60); GLUCOSE,RANDOM 94 mg/dL (70-110); POTASSIUM 3.4 mmol/L (3.5-5.1); SODIUM SERUM 139 mmol/L (136-145); UREA NITROGEN, BLOOD 19 mg/dL (7-18)
[2020-05-14 14:35] LABS: ALANINE AMINOTRANSFERASE 21 U/L (12-78); ALBUMIN 4.3 g/dL (3.4-5.0); ALKALINE PHOSPHATASE 51 U/L (46-116); ASPARTATE AMINOTRANSFERASE 18 U/L (15-37); BILIRUBIN,TOTAL 2.3 mg/dL (0.1-1.0); VALPROIC ACID < 3 mcg/mL (50-100)
[2020-05-14] MEDS ORDERED: HALOPERIDOL 5 MG TABLET PO ONE (16:00)
[2020-05-14 17:02] VITALS: BP 105/59
== END 2020-05-14 17:35 | disposition home or self-care (01) ==
LOC: EMS 10:24
DX: F20.0 Paranoid schizophrenia (principal); F15.10 Other stimulant abuse, uncomplicated; F41.9 Anxiety disorder, unspecified; F31.9 Bipolar disorder, unspecified; J45.909 Unspecified asthma, uncomplicated; F17.210 Nicotine dependence, cigarettes, uncomplicated; F12.90 Cannabis use, unspecified, uncomplicated
CPT/HCPCS: 36415; 80053; 80164; 85025; 99285; G0480

== ENCOUNTER 2020-12-10 10:02 | Emergency (ER) | payer MEDICARE, MEDICAID ==
[~2020-12-10] VITALS: Ht 167.6 cm; Wt 74.0 kg
[2020-12-10 13:12] VITALS: BP 122/87
== END 2020-12-10 14:18 | disposition home or self-care (01) ==
LOC: EMS 10:02
DX: F25.9 Schizoaffective disorder, unspecified (principal); F15.10 Other stimulant abuse, uncomplicated; F41.9 Anxiety disorder, unspecified; F31.9 Bipolar disorder, unspecified; J45.909 Unspecified asthma, uncomplicated; F17.210 Nicotine dependence, cigarettes, uncomplicated; F12.90 Cannabis use, unspecified, uncomplicated; Z59.0 Homelessness; Z91.14 Patient's other noncompliance with medication regimen
CPT/HCPCS: 99284; Z7502